=== PATIENT | male | born 1990 | race Caucasian/White ===

== ENCOUNTER 2021-03-02 19:07 | Emergency (ER) | payer BC | END 2021-03-02 21:00 | disposition home or self-care (01) | LOC: JP.ED 19:07 | DX: S63.501A Unspecified sprain of right wrist, initial encounter (principal); X50.1XXA Overexertion from prolonged static or awkward postures, initial encounter | CPT/HCPCS: 73110-26-RT; 73110-RT; 99283; 99283-25 ==